=== PATIENT | female | born 1940 | race Caucasian/White ===

== ENCOUNTER 2018-11-24 05:53 | Inpatient (IN) ==
--- NOTE | 2018-11-11 11:44 | Anesthesiology Consultation ---
Date of Service November 11, 2018 Assessment & Plan (1) Encounter for pre-operative examination: Plan: Note sent to PCP re: new diabetes finding. PCP Clearance 11/17/18: "Glucose today in office 105. Patient will likely be diet controlled. Discussed diet, exercise and lifestyle. Will refer to diabetes education. Will refer for diabetic eye exam. Urine microalbumin. Follow-up in 4 weeks, A1c prior. Medically cleared for surgery." CHECK BSG AM DOS Chart Review Chart Review: Acceptable Risk for Surgery and Patient seen in Pre Admission Testing Teaching & Discussion Instructed NPO after midnight before surgery, except medications with 15 cc of water. Medication instructions provided according to the PAT guidelines. History Surgery Operation Date: 11/24/18 08:15 Proposed Procedures p Right Total Hip Arthroplasty - Kenyon Huston MD Height/Weight Height: 5 ft 1 in Weight: 84.9 kg Allergies Allergy/AdvReac Type Severity Reaction Status Date / Time ibuprofen AdvReac Unknown NOT TO Verified 11/10/18 15:38 TAKE DUE TO KIDNEY FUNCTION Medications Home Medications Medication Instructions Recorded Confirmed Last Taken acetaminophen [Tylenol Extra 500 mg PO Q6H PRN 11/10/18 11/10/18 Unknown Strength] amlodipine 5 mg PO QAM 11/10/18 11/10/18 Unknown atorvastatin 40 mg PO QAM 11/10/18 11/10/18 Unknown cholecalciferol (vitamin D3) 5,000 unit PO QAM 11/10/18 11/10/18 Unknown [Vitamin D3] hydrochlorothiazide 25 mg PO QAM 11/10/18 11/10/18 Unknown levothyroxine 100 mcg PO QAM 11/10/18 11/10/18 Unknown lisinopril 2.5 mg PO QAM 11/10/18 11/10/18 Unknown omega 5-xxy-map-fish oil [Fish Oil] 1 cap PO QAM 11/10/18 11/10/18 Unknown potassium chloride 20 meq PO QAM 11/10/18 11/10/18 Unknown Past Medical History Medical History Chronic back pain Chronic kidney disease STAGE 3 F/U DR [place] Q 1 YR Diabetes New dx, per PCP will attempt diet control. Hyperlipidemia Hypertension Hypothyroidism Obesity Osteoarthritis Past Family History Family History Brother Family history of diabetes mellitus Sister Family history of diabetes mellitus Past Surgical History Surgical History H/O hand surgery RIGHT BONE SPUR History of ERCP REMOVAL STONE History of section History of cholecystectomy History of total hip arthroplasty LEFT Past Anesthesia History No Hx of Anesthesia Complications and No Family Hx of Anesthesia Complications (unknown) 2013 MARTHA at [facility] done with GA, record does not indicate reason, but spinal block was not attempted. MAC 3, ETT 7.0. History of PONV No Motion Sickness Screening History of Motion Sickness: Yes Social History Smoking Status: Never smoker Do You Dip or Chew Tobacco: No Hx Alcohol Use: No Hx Substance Use: No substance use type: does not use Exercise / Class Metabolic Activity III < 4 Walking/Shop/Light housework (Denies CP or SOB with stairs but currently limited by hip pain) Review of Systems Pt denies any recent chest pain, shortness of breath, palpitations, cough, fever or URI. Physical Exam Vital Signs BP: 135/58 P: 62bpm SPO2: 98% RA T: 97.5 F R: 20 ENMT Mouth: + dentures (full upper, partial lower); no chipped teeth and no loose teeth Thyromental Distance: > or= 3.5 Finger Breadths (3.5) Mallampati Class: II Neck normal visual inspection; neck extension not limited Respiratory normal respiratory effort Auscultation: lungs clear to auscultation bilaterally Cardiovascular Rate/Rhythm: regular rate and regular rhythm Heart Sounds: no murmur Vessels: no carotid bruit Extremities: no edema Testing Electrocardiogram Date: 11/11/18 Findings: + NSR @ (62) 1st degree AV block. Left axis deviation. Chest X-Ray Date: 11/11/18 FINDINGS: Stable small linear scarlike densities within the lingula. Otherwise, lungs are clear. Cardiac silhouette is normal in size. No pleural effusions. No pneumothorax. Prior cholecystectomy. IMPRESSION: No significant change compared to the prior study. No acute process. Echocardiogram Date: 12/13/13 EF: 60-65% The study was technically adequate. The left ventricle is normal in size. There is borderline concentric LVH. The left ventricular systolic function is normal. There is no thrombus. The left ventricular wall motion is normal. Right ventricle is normal in size and function. No significant valve disease. Grade 1 diastolic dysfunction. Laboratory Results 11/11/18 12:20 11/11/18 11:20 Blood Type O Positive 11/11/18 12:20 Antibody Screen NEGATIVE 11/11/18 12:20 PT 10.3 Seconds (9.0-12.0) 11/11/18 12:20 INR 1.0 (0.9-1.1) 11/11/18 12:20 APTT 26.1 Seconds (21.0-31.0) 11/11/18 12:20 Hemoglobin A1c 7.0 % (4.5-5.6) H 11/11/18 12:20 Urine Color Yellow 11/11/18 12:20 Urine Appearance Clear (Clear) 11/11/18 12:20 Urine pH 5.0 (4.5-7.5) 11/11/18 12:20 Ur Specific Bevier 1.010 (1.000-1.030) 11/11/18 12:20 Urine Protein Negative (Negative) 11/11/18 12:20 Urine Glucose (UA) Negative (Negative) 11/11/18 12:20 Urine Ketones Negative (Negative) 11/11/18 12:20 Urine Nitrite Negative (Negative) 11/11/18 12:20 Ur Leukocyte Esterase Trace (Negative) H 11/11/18 12:20 Urine WBC (Auto) 1-5 /hpf (0-5) 11/11/18 12:20 Urine RBC (Auto) 0-4 /hpf (0-4) 11/11/18 12:20 U Hyaline Cast (Auto) 0 /lpf (0-5) 11/11/18 12:20 U Epithel Cells (Auto) 5-10 /lpf (0-5) H 11/11/18 12:20 Urine Bacteria (Auto) Negative (Negative) 11/11/18 12:20 11/11/18 12:20 Urine Culture - Final Urine,Clean Catch Lactobacillus species
--- NOTE | 2018-11-11 11:47 | PAT Medication Instructions ---
Medication Instructions Date of Service November 11, 2018 Home Medications acetaminophen [Tylenol Extra Strength] 500 mg PO Q6H PRN amlodipine 5 mg PO QAM atorvastatin 40 mg PO QAM cholecalciferol (vitamin D3) 5,000 unit PO QAM hydrochlorothiazide 25 mg PO QAM levothyroxine 100 mcg PO QAM lisinopril 2.5 mg PO QAM omega 6-drj-mkc-fish oil [Fish Oil] 1 cap PO QAM potassium chloride 20 meq PO QAM STOP taking 2 weeks before surgery omega 6-mut-cts-fish oil [Fish Oil] 1 cap PO QAM DO NOT take the morning of surgery cholecalciferol (vitamin D3) 5,000 unit PO QAM hydrochlorothiazide 25 mg PO QAM lisinopril 2.5 mg PO QAM potassium chloride 20 meq PO QAM Take morning of surgery With a small sip of water, OTHERWISE NOTHING TO EAT OR DRINK AFTER MIDNIGHT: acetaminophen [Tylenol Extra Strength] 500 mg PO Q6H PRN (if needed, may be taken up to four hours before surgery) amlodipine 5 mg PO QAM atorvastatin 40 mg PO QAM levothyroxine 100 mcg PO QAM Other Notes If you have any questions please call us at [phone] or [phone] or [phone] or [phone]
--- NOTE | 2018-11-11 13:00 | XRay Report ---
XR chest Pre-admission PA/Lat HISTORY: Preop. COMPARISON: Chest 11/15/2013. FINDINGS: Stable small linear scarlike densities within the lingula. Otherwise, lungs are clear. Card iac silhouette is normal in size. No pleural effusions. No pneumothorax. Prior cholecystectomy. IMPRESSION: No significant change compared to the prior study. No acute process. Electronically signed by: Jose Mckeon M.D. 11/11/2018 12:58 PM
[2018-11-11 13:20] LABS: Basophils # (auto) 0.02 K/uL (0-0.2); Basophils % (auto) 0.3 %; Eosinophils # (auto) 0.15 K/uL (0-0.5); Eosinophils % (auto) 1.9 %; Hematocrit (blood only) 36.8 % (37-47); Hemoglobin 12.1 g/dL (12.0-16.0); Immature Granulocytes # (auto) 0.01 K/uL (0.00-0.02); Immature Granulocytes % (auto) 0.1 %; Lymphocytes # (auto) 1.77 K/uL (1.2-3.4); Lymphocytes % (auto) 22.9 %; Mean Corpuscular Hgb Conc 32.9 g/dL (32-36); Mean Corpuscular Volume 92.7 fL (80-100); Mean Platelet Volume 10.5 fL (7.4-10.4); Monocytes # (auto) 0.69 K/uL (0.11-0.59); Monocytes % (auto) 8.9 %; Neutrophils % (auto) 65.9 %; Platelet Count 328 K/uL (130-400); RDW Coefficient of Variation 13.4 % (11.5-14.5); RDW Standard Deviation 45.7 fL (36.4-46.3); Red Blood Count 3.97 M/uL (4.2-5.4); White Blood Count 7.74 K/uL (4.8-10.8)
[2018-11-11 13:33] LABS: Appearance Urine Clear (Clear); Bacteria Urine Automated Negative (Negative); Bilirubin Urine Negative (Negative); Blood Urine Negative (Negative); Cast Urine Automated 0 /lpf (0-5); Color Urine Yellow; Glucose Urine UA Negative (Negative); Ketones Urine Negative (Negative); Leukocyte Esterase Urine Trace (Negative); Nitrite Urine Negative (Negative); Protein Urine Negative (Negative); RBC Urine Automated 0-4 /hpf (0-4); Urobilinogen Urine Negative (Negative)
[2018-11-11 13:33] LABS: Albumin Level 3.5 gm/dl (3.4-5.0); BUN Creatinine Ratio 20.7 (10-20); Calcium 8.7 mg/dl (8.5-10.1); Creatinine Clr Calc Pharmacy 45.9 ml/min; Est GFR (African American) 61.2; Est GFR (Non-African American) 52.8; Potassium 3.4 mmol/L (3.5-5.1)
[2018-11-11 13:36] LABS: Estimated Average Glucose 154 mg/dl
[2018-11-11 13:39] LABS: Partial Thromboplastin Time 26.1 Seconds (21.0-31.0); Prothrombin Time 10.3 Seconds (9.0-12.0)
--- NOTE | 2018-11-23 11:59 | History and Physical Report ---
DATE OF ADMISSION: 11/24/2018 CHIEF COMPLAINT: Right hip pain. HISTORY OF PRESENT ILLNESS: The patient is a 78-year-old female with known osteoarthritis about her right hip. She is unable to take NSAIDs due to a questionable history of kidney troubles. She has pain and disability with activities of daily living. She has pain with prolonged weightbearing and standing activities. She has difficulty with any kneeling, bending, or squatting activities. Due to ongoing pain and disability, she now desires to proceed with right total hip arthroplasty. PAST MEDICAL HISTORY: Hypertension, hypercholesterolemia, hypothyroidism, low back pain, obesity, history of kidney dysfunction. PAST SURGICAL HISTORY: , gallbladder surgery, right hand surgery. MEDICATIONS: Levothyroxine 100 mcg daily, hydrochlorothiazide 25 mg daily, amlodipine besylate 5 mg daily, potassium CLER 10 mEq 2 daily, atorvastatin 40 mg daily, lisinopril 2.5 mg daily, fish oil daily, vitamin D3 daily. ALLERGIES: No known drug allergies. SOCIAL HISTORY AND REVIEW OF SYSTEMS: Noncontributory. PHYSICAL EXAMINATION: GENERAL: Well-nourished, well-developed female who appears her stated age. HEENT: Normocephalic, atraumatic, extraocular movements intact, oropharynx pink and moist. NECK: Supple without adenopathy. LUNGS: Clear to auscultation bilaterally. HEART: Regular rate and rhythm. ABDOMEN: Soft, nontender, nondistended. EXTREMITIES: The upper extremities are within normal limits. The right hip demonstrates limited range of motion. There is limitation of active and passive internal/external rotation with pain at end range. X-RAYS: X-rays were reviewed. She has severe osteoarthritis about the right hip with complete loss of the joint space. There are osteophytes about the femoral head and acetabulum. ASSESSMENT: Right hip degenerative joint disease. PLAN: Risks versus benefits were discussed, consent was obtained. The patient's primary care physician is Dr. Waldemar Hairston. We will proceed with right total hip arthroplasty as indicated.
[2018-11-24] MEDS ORDERED: TRANEXAMIC ACID 1,000 MG **IV Pre-op IV SCH (06:00)
[2018-11-24] MEDS ORDERED: dexAMETHasone 4 MG TAB PO SCH (06:00)
[2018-11-24] MEDS ORDERED: GABAPENTIN 300 MG PO SCH (06:00)
[2018-11-24] MEDS ORDERED: LR 500ML BOLUS, THEN 15ML/HR IV SCH (06:00)
[2018-11-24] MEDS ORDERED: ROPIVACAINE 0.5% HCL/PF 150 MG, BUPIVACAINE 0.5% MPF 30 ML, EPINEPHrine 30MG/30ML (OR U... INFIL SCH (06:00)
[2018-11-24] MEDS ORDERED: FAMOTIDINE 20 MG TAB PO SCH (06:00)
[2018-11-24] MEDS ORDERED: ACETAMINOPHEN 500 MG TAB PO SCH (06:00)
[2018-11-24] MEDS ORDERED: CeleBREX 200 MG CAP PO SCH (06:00)
[2018-11-24] MEDS ORDERED: CEFAZOLIN 2000MG 2,000 MG/15 ML SYR IV SCH (06:00)
[2018-11-24] MEDS ORDERED: BUPIVACAINE 0.5 % 5 MG/1 ML PF 10ML VIAL ONE (06:22)
[2018-11-24] MEDS ORDERED: TRANEXAMIC ACID 1,000 MG **IV Intra-op IV SCH (06:30)
[2018-11-24] MEDS ORDERED: METOPROLOL TARTRATE 1 MG/ML VIAL IV ONE ×2 (07:20→07:21)
[2018-11-24] MEDS: METOPROLOL TARTRATE 1 MG/ML VIAL IV PRN ×4 (07:28→07:59)
[2018-11-24] MEDS ORDERED: MIDAZOLAM HCL 1 MG/ML 2ML VIAL ONE (07:44)
[2018-11-24] MEDS ORDERED: KETAMINE HCL INJ 50 MG/ML 10 ML VIAL ONE (07:45)
[2018-11-24] MEDS ORDERED: ACETAMINOPHEN 500 MG TAB PO PRN (08:06)
--- NOTE | 2018-11-24 08:20 | History & Physical Report ---
Date of Service November 24, 2018 Assessment & Plan (1) Atrial fibrillation with RVR: (2) New onset a-fib: - Admit to tele for new onset Afib with RVR - IV metoprolol 5 mg given x 4 in the ASU prior to my examination and BP has greatly improved to 134/87 down and HR still around 120s. Will continue BB IV with parameters and likely transition to oral once more stabilized. Pt is asymptomatic. - Cardiology consulted - will await further recommendations - Checking CMP now to evaluate K+, magnesium, phos. - Trend troponins - EKG reviewed - Anticoagulation - await cardiology recs - pt electing for total hip arthroplasty will require instructions if placed on anticoagulation. (3) Benign essential HTN: - Did not take HCTZ, amlodipine or lisinopril this morning. Will resume these meds tomorrow am pending course with afib today and beta blockade which has been administered IV. Will likely add on oral BB. (4) HLD (hyperlipidemia): - Cont atorvastatin 40 mg (5) DM II (diabetes mellitus, type II), controlled: - A1C = 7.0 on 11/11/18, new diagnosis - ISS with accuchecks, Diabetic/HH diet - Pt is not on pharmacological treatment as an outpatient. (6) Hypothyroidism: - Continue levothyroxine 100 mcg QAM (7) Chronic low back pain: - Stable, no current pain. Tylenol prn (8) CKD (chronic kidney disease): - Checking PRP, unknown baseline at this time. - Ordered lovenox subq for now, transition to heparin if poor Cr./clearance. (9) Obesity (BMI 30.0-34.9): - Diet and exercise to be encouraged, HH diet. (10) DVT prophylaxis: - Heparin subq History of Present Illness Chief Complaint: New onset afib Primary Care Provider: Waldemar Ophir This is a 78 yo F with PMHx of HTN, HLD, obesity with BMI of 34, Hypothyroidism, CKD, chronic low back pain who was present for elective R total hip arthroplasty by Dr. Huston, and was found to be in Afib with RVR once in preop. Pt denies any acute symptoms, denies chest pain, shortness of breath, palpitation, flutter, headache, lightheadedness, dizziness. She denies having known cardiac arrhythmia in the past. Pt notes she did not eat breakfast due to scheduled surgery, and did not take morning potassium, HCTZ or lisinopril as instructed. Her is present at bedside. EKG with Afib with RVR, pt s/p 4 doses of Lopressor IV 5 mg and pt is 134/87 and HR is between the 120s-130s at bedside. Allergies Allergy/AdvReac Type Severity Reaction Status Date / Time ibuprofen AdvReac Unknown NOT TO Verified 11/24/18 07:12 TAKE DUE TO KIDNEY FUNCTION Home Medications Home Medications Medication Instructions Recorded Confirmed Type acetaminophen [Tylenol Extra 500 mg PO Q6H PRN 11/10/18 11/24/18 History Strength] amlodipine 5 mg PO QAM 11/10/18 11/10/18 History atorvastatin 40 mg PO QAM 11/10/18 11/10/18 History cholecalciferol (vitamin D3) 5,000 unit PO QAM 11/10/18 11/24/18 History [Vitamin D3] hydrochlorothiazide 25 mg PO QAM 11/10/18 11/24/18 History levothyroxine 100 mcg PO QAM 11/10/18 11/10/18 History lisinopril 2.5 mg PO QAM 11/10/18 11/24/18 History omega 4-oho-bii-fish oil [Fish Oil] 1 cap PO QAM 11/10/18 11/24/18 History potassium chloride 20 meq PO QAM 11/10/18 11/24/18 History Past Med/Surg History Medical History Chronic back pain Chronic kidney disease STAGE 3 F/U DR [place] Q 1 YR Diabetes New dx, per PCP will attempt diet control. 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 Beliefs That Will Affect Care: None Current Living Situation: Spouse Other Information That Helps Us Care for You: No Feels Safe at Home: Yes Safety Concerns: Feels Safe At This Time Smoking Status: Never smoker Hx Alcohol Use: No Hx Substance Use: No Review of Systems Constitutional: No fever, sweats or chills Eyes: No diplopia, no worsening or blurred vision ENT: normal hearing, no trouble swallowing Respiratory: No cough, sputum, dyspnea at rest or on exertion Cardiovascular: No chest pain, tightness or palpitations Abdomen: No pain, nausea, vomiting, diarrhea or constipation Musculoskeletal: No joint pain, calf pain, swelling Neurologic: No weakness, numbness/tingling, or balance problems Psychiatric: No anxiety or depression Skin: No rash or itch Physical Exam Vital Signs (Past 24 Hours): Last Vital Signs Temp 36.5 C 11/24/18 07:55 Pulse 147 H 11/24/18 07:55 Resp 20 11/24/18 07:55 BP 164/105 H 11/24/18 07:55 Pulse Ox 99 11/24/18 07:55 Physical Exam: General: awake, alert, no apparent distress Head: Normocephalic, atraumatic ENT: PERRL, EOMI, no pharyngeal exudate, mucous membranes moist Chest: Clear to auscultation, on room air, no adventitious breath sounds Cardiac: Irregularly irregular, rapid with HR in 120s, no murmur, no JVD, normal peripheral pulses Abdominal: NABS x 4 quadrants, soft, nontender to palpation, no rebound, guarding or tenderness Extremities: Normal inspection, no peripheral edema or erythema, + ecchymosis over the left knee and lateral lower leg s/p injury, calfs nontender to palpation Psych: Normal mood and affect Neuro: AAO x 3, no motor deficits, speech is clear Results & Data ECG Additional Comments: 24-NOV-2018 07:26:06 [facility] Atrial fibrillation with rapid ventricular response Left axis deviation Moderate voltage criteria for LVH, may be normal variant ST & T wave abnormality, consider lateral ischemia Abnormal ECG When compared with ECG of 11-NOV-2018 12:15, Atrial fibrillation has replaced Sinus rhythm Vent. rate has increased BY 87 BPM Vent. rate 149 BPM MN interval * ms QRS duration 78 ms QT/QTc 258/406 ms P-R-T axes * -34 114 Code Status & VTE Plan Code Status Full Supervising Physician Co-Signing Physician Notes Patient seen, examined, and discussed with Rita Tay PA-C today. I agree with the H&P as described by Ms. Tay with the following summary/exceptions: 78yo F w/ hx of osteoarthritis who presented for planned right total hip with Dr. Huston. However, in the pre-op area, she was found to be hypertensive and in afib with RVR. She is entirely asymptomatic and did not know she was afib. Procedure was cancelled, and we were requested to admit for afib with RVR. 1) Afib with RVR - Spontaneously converted at 10:15am. Will gently control her rate while here. Will institute anticoagulation if she will not get her procedure in the next week. Chads-Vasc is 5. 2) HTN - BP currently 116/70. Was elevated after missing some of her home meds for the surgery. Will monitor as we're now adding a new medication to her regimen. 3) DM2 - A1c was 7.0%. No outpatient meds. Sliding scale
[2018-11-24] MEDS ORDERED: AMLODIPINE BESYLATE 5 MG TAB PO SCH (09:00)
[2018-11-24] MEDS ORDERED: POTASSIUM CHLORIDE 10 MEQ TABCR PO SCH (09:00)
[2018-11-24] MEDS ORDERED: ATORVASTATIN 40 MG TAB PO SCH (09:00)
[2018-11-24] MEDS ORDERED: LISINOPRIL 2.5 MG TAB PO SCH (09:00)
[2018-11-24] MEDS ORDERED: CHOLECALCIFEROL 1,000 UNITS TAB PO SCH (09:00)
[2018-11-24] MEDS ORDERED: hydroCHLOROthiazide 25 MG TAB PO SCH (09:00)
[2018-11-24] MEDS ORDERED: METOPROLOL TARTRATE 1 MG/ML VIAL IV PRN (09:27)
[2018-11-24] MEDS ORDERED: CARBOHYDRATES FOR HYPOGLYCEMIA PO PRN (09:27)
[2018-11-24] MEDS ORDERED: GLUCOSE 10 TABS/TUBE PO PRN (09:27)
[2018-11-24] MEDS ORDERED: GLUCOSE 40% GEL 15 GM TUBE PO PRN (09:27)
[2018-11-24] MEDS ORDERED: ACETAMINOPHEN 325 MG TAB PO PRN (09:27)
[2018-11-24] MEDS ORDERED: GLUCAGON FOR INJ 1 MG VIAL SQ PRN (09:27)
[2018-11-24] MEDS ORDERED: ONDANSETRON INJ 2 MG/ML 2 ML VIAL IV PRN (09:27)
[2018-11-24] MEDS ORDERED: DEXTROSE 50% 50 ML SYRINGE IV PRN (09:27)
--- NOTE | 2018-11-24 09:29 | Cardiology Consultation ---
Date of Consultation November 24, 2018 Assessment & Plan (1) Atrial fibrillation with RVR: Patient presented for scheduled right hip replacement and was subsequently admitted with new onset atrial fibrillation with RVR. She is asymptomatic and therefore impossible to determine how long she has been in atrial fibrillation. She is well perfused on exam without signs of heart failure. Recommend rate control strategy. Start metoprolol tartrate 50 TID. If heart rate remains uncontrolled recommend starting a diltiazem drip. Check TSH level given history of hypothyroidism. Obtain echocardiogram. She has an elevated CHADS-VASc score and anticoagulation is recommended for stroke risk reduction. The timing of initiation will depend on when her surgery is scheduled for. If surgery within the next week can hold off on initiating anticoagulation until after surgery. (2) Benign essential HTN: BP was elevated upon admission but has improved after getting metoprolol. May need to discontinue her home antihypertensives in order to allow for further titration of AV kamryn blocking agents. History of Present Illness Reason for Consultation: Atrial fibrillation with RVR Attending Physician: Kenyon Huston MD History of Present Illness Mrs. Li is a 78 year old female with a medical history significant for hypertension, hypothyrodism, dyslipidemia and osteoarthritis. She presented to [facility] this morning for scheduled right hip replacement but was noted to be in atrial fibrillation with RVR. Her heart rate was as high as 160s. She has been given a total of 20 mg IV metoprolol with only slight improvement in her heart rate. She denies any cardiac history, specifically denies history of atrial dysrhythmia. She is asymptomatic without palpitations. At home she remains fairly active and is able to perform her activities of daily living including cleaning and cooking without exertional chest pain or limiting dyspnea. She denies orthopnea, PND or peripheral edema. No lightheadedness, near syncope or syncope. No abnormal bleeding. ROS: 10 point review of systems otherwise negative unless stated in HPI. Social hx: . No tobacco, alcohol or drug use. Allergies Allergy/AdvReac Type Severity Reaction Status Date / Time ibuprofen AdvReac Unknown NOT TO Verified 11/24/18 07:12 TAKE DUE TO KIDNEY FUNCTION Home Medications Home Medications Medication Instructions Recorded Confirmed Type acetaminophen [Tylenol Extra 500 mg PO Q6H PRN 11/10/18 11/24/18 History Strength] amlodipine 5 mg PO QAM 11/10/18 11/10/18 History atorvastatin 40 mg PO QAM 11/10/18 11/10/18 History cholecalciferol (vitamin D3) 5,000 unit PO QAM 11/10/18 11/24/18 History [Vitamin D3] hydrochlorothiazide 25 mg PO QAM 11/10/18 11/24/18 History levothyroxine 100 mcg PO QAM 11/10/18 11/10/18 History lisinopril 2.5 mg PO QAM 11/10/18 11/24/18 History omega 3-kqo-psy-fish oil [Fish Oil] 1 cap PO QAM 11/10/18 11/24/18 History potassium chloride 20 meq PO QAM 11/10/18 11/24/18 History metoprolol succinate 25 mg PO DAILY #30 tab 11/24/18 Rx Patient History Medical History Chronic back pain Chronic kidney disease STAGE 3 F/U DR [place] Q 1 YR Diabetes New dx, per PCP will attempt diet control. Hyperlipidemia Hypertension Hypothyroidism Obesity Osteoarthritis Surgical History H/O hand surgery RIGHT BONE SPUR History of ERCP REMOVAL STONE History of section History of cholecystectomy History of total hip arthroplasty LEFT Family History Brother Family history of diabetes mellitus Sister Family history of diabetes mellitus Social History Preferred Language: [place] Beliefs That Will Affect Care: None Current Living Situation: Spouse Other Information That Helps Us Care for You: No Feels Safe at Home: Yes Safety Concerns: Feels Safe At This Time Smoking Status: Never smoker Hx Alcohol Use: No Hx Substance Use: No Physical Exam Vital Signs (Past 24 Hours): Last Vital Signs Temp 36.5 C 11/24/18 07:55 Pulse 128 H 11/24/18 08:51 Resp 20 11/24/18 08:51 BP 124/87 11/24/18 08:51 Pulse Ox 95 11/24/18 08:51 Physical Exam: General: No acute distress, comfortable. HEENT: Head is normal. PERRLA. EOMI. Sclerae anicteric. Ears, nose and throat unremarkable. Mucous membranes moist. Neck: Normal carotid upstrokes, no bruits. No appreciable JVD. Lungs: Clear to auscultation bilaterally without rales, rhonchi or wheezes. Cardiac: Irregularly irregular. Tachycardic. S1-S2 normal. No appreciable murmur, gallop or rub. Abdomen: Soft and nontender. Bowel sounds normal. No mass or organomegaly. No abdominal bruit. Extremities/vascular: Well perfused. No peripheral edema. Radial, DP and PT pulses 2+ bilaterally Varicosities of lower extremities. Skin: No rash or abnormal lesions. Normal turgor. Neurologic: Nonfocal Psychiatric: Affect appropriate. Alert and oriented. Results & Data Laboratory Results Laboratory Results - last 24 hr 11/24/18 07:21 POC Glucose 148 H ECG Additional Comments: EKG 11/24/18: Atrial fibrillation with RVR at [address]/T wave changes
[2018-11-24 09:43] LABS: Basophils # (auto) 0.02 K/uL (0-0.2); Basophils % (auto) 0.2 %; Eosinophils # (auto) 0.05 K/uL (0-0.5); Eosinophils % (auto) 0.6 %; Hematocrit (blood only) 36.7 % (37-47); Hemoglobin 12.2 g/dL (12.0-16.0); Immature Granulocytes # (auto) 0.02 K/uL (0.00-0.02); Immature Granulocytes % (auto) 0.2 %; Lymphocytes # (auto) 1.26 K/uL (1.2-3.4); Lymphocytes % (auto) 14.1 %; Mean Corpuscular Volume 91.5 fL (80-100); Mean Platelet Volume 10.5 fL (7.4-10.4); Monocytes # (auto) 0.63 K/uL (0.11-0.59); Neutrophils # (auto) 6.96 K/uL (1.4-6.5); Neutrophils % (auto) 77.9 %; Platelet Count 319 K/uL (130-400); RDW Coefficient of Variation 13.5 % (11.5-14.5); RDW Standard Deviation 44.7 fL (36.4-46.3); Red Blood Count 4.01 M/uL (4.2-5.4); White Blood Count 8.94 K/uL (4.8-10.8)
[2018-11-24] MEDS ORDERED: ENOXAPARIN INJ 40 MG/0.4 ML SYR SQ SCH (09:45)
[2018-11-24] MEDS ORDERED: METOPROLOL TARTRATE 50 MG TAB PO SCH (09:45)
[2018-11-24 09:59] LABS: Albumin Level 3.6 gm/dl (3.4-5.0); BUN Creatinine Ratio 21.9 (10-20); Blood Urea Nitrogen 24 mg/dl (7-18); Calcium 8.9 mg/dl (8.5-10.1); Carbon Dioxide 30 mmol/L (21-32); Chloride 103 mmol/L (98-107); Est GFR (African American) 57.1; Est GFR (Non-African American) 49.3; Glucose 135 mg/dl (70-99); Sodium 139 mmol/L (136-145)
[2018-11-24] MEDS ORDERED: LEVOTHYROXINE SODIUM 100 MCG TABLET PO SCH (10:00)
[2018-11-24 10:04] LABS: Alanine Aminotransferase 33 U/L (12-78); Albumin Globulin Ratio 0.8 (0.9-2); Alkaline Phosphatase 141 U/L (45-117); Aspartate Aminotransferase 31 U/L (15-37); Bilirubin,Total 0.6 mg/dl (0.2-1); Globulin 4.3 gm/dl (2.5-4.0); Mean Corpuscular Hgb Conc 33.2 g/dL (32-36); Phosphorus 3.5 mg/dl (2.5-4.9); Total Protein 7.9 gm/dl (6.4-8.2); Troponin I < 0.015 ng/ml (0-0.045)
[2018-11-24 10:31] LABS: Appearance Urine Clear (Clear); Bacteria Urine Automated Negative (Negative); Bilirubin Urine Negative (Negative); Blood Urine Negative (Negative); Color Urine Yellow; Epithelial Cell Urine Auto 20-30 /lpf (0-5); Glucose Urine UA Negative (Negative); Ketones Urine Negative (Negative); Leukocyte Esterase Urine 1+ (Negative); Nitrite Urine Negative (Negative); Protein Urine Negative (Negative); RBC Urine Automated 0-4 /hpf (0-4); Urobilinogen Urine Negative (Negative)
[2018-11-24] MEDS: INSULIN ASPART 100 UNITS/ML 3 ML PEN SC SCH ×2 (12:31→16:45)
[2018-11-24] MEDS ORDERED: METOPROLOL SUCC 25MG EXT REL TAB PO SCH (12:45)
[2018-11-25] MEDS ORDERED: OMEGA-3 (PURIFIED FISH OIL) 1 GM CAP PO SCH (09:00)
--- NOTE | 2018-11-25 09:35 | Hospitalist Consultation ---
Date of Consultation November 25, 2018 History of Present Illness Attending Physician: Hilton Joaquin MD Allergies Allergy/AdvReac Type Severity Reaction Status Date / Time ibuprofen AdvReac Unknown NOT TO Verified 11/24/18 07:12 TAKE DUE TO KIDNEY FUNCTION Home Medications Home Medications Medication Instructions Recorded Confirmed Type acetaminophen [Tylenol Extra 500 mg PO Q6H PRN 11/10/18 11/24/18 History Strength] amlodipine 5 mg PO QAM 11/10/18 11/10/18 History atorvastatin 40 mg PO QAM 11/10/18 11/10/18 History cholecalciferol (vitamin D3) 5,000 unit PO QAM 11/10/18 11/24/18 History [Vitamin D3] hydrochlorothiazide 25 mg PO QAM 11/10/18 11/24/18 History levothyroxine 100 mcg PO QAM 11/10/18 11/10/18 History lisinopril 2.5 mg PO QAM 11/10/18 11/24/18 History omega 8-qxr-bkw-fish oil [Fish Oil] 1 cap PO QAM 11/10/18 11/24/18 History potassium chloride 20 meq PO QAM 11/10/18 11/24/18 History metoprolol succinate 25 mg PO DAILY #30 tab 11/24/18 Rx Patient History Medical History Chronic back pain Chronic kidney disease STAGE 3 F/U DR [place] Q 1 YR Diabetes New dx, per PCP will attempt diet control. Hyperlipidemia Hypertension Hypothyroidism Obesity Osteoarthritis Surgical History H/O hand surgery RIGHT BONE SPUR History of ERCP REMOVAL STONE History of section History of cholecystectomy History of total hip arthroplasty LEFT Family History Brother Family history of diabetes mellitus Sister Family history of diabetes mellitus Social History Preferred Language: Polish Beliefs That Will Affect Care: None Current Living Situation: Spouse Other Information That Helps Us Care for You: No Feels Safe at Home: Yes Safety Concerns: Feels Safe At This Time Smoking Status: Never smoker Hx Alcohol Use: No Hx Substance Use: No Physical Exam Vital Signs (Past 24 Hours): Last Vital Signs Temp 36.6 C 11/24/18 17:23 Pulse 147 H 11/24/18 17:23 Resp 20 11/24/18 17:23 BP 126/76 11/24/18 17:23 Pulse Ox 100 11/24/18 17:23
--- NOTE | 2018-11-25 14:20 | Discharge Summary ---
Date of Service November 24, 2018 Admission HPI Per Admitting Provider This is a 78 yo F with PMHx of HTN, HLD, obesity with BMI of 34, Hypothyroidism, CKD, chronic low back pain who was present for elective R total hip arthroplasty by Dr. Huston, and was found to be in Afib with RVR once in preop. Pt denies any acute symptoms, denies chest pain, shortness of breath, palpitation, flutter, headache, lightheadedness, dizziness. She denies having known cardiac arrhythmia in the past. Pt notes she did not eat breakfast due to scheduled surgery, and did not take morning potassium, HCTZ or lisinopril as instructed. Her is present at bedside. EKG with Afib with RVR, pt s/p 4 doses of Lopressor IV 5 mg and pt is 134/87 and HR is between the 120s-130s at bedside. Principal Diagnosis New onset afib with RVR Discharge Exam ENMT Mouth: + dentures (full upper, partial lower); no chipped teeth and no loose teeth Mallampati Class: II Neck normal visual inspection; neck extension not limited Respiratory normal respiratory effort Auscultation: lungs clear to auscultation bilaterally Cardiovascular Rate/Rhythm: regular rate and regular rhythm Heart Sounds: no murmur Vessels: no carotid bruit Extremities: no edema Discharge Data Allergies Allergy/AdvReac Type Severity Reaction Status Date / Time ibuprofen AdvReac Unknown NOT TO Verified 11/24/18 07:12 TAKE DUE TO KIDNEY FUNCTION Consultations 11/24/18 08:10 Consult Hospitalist Stat 11/24/18 08:57 Consult Cardiology Stat 11/24/18 09:27 Consult Cardiology Routine Consult Case Management - Discharge Planning Routine Procedures Performed Operation Date: 11/24/18 08:15 <No data on this case meets the specified criteria> Hospital Course (1) Atrial fibrillation with RVR: (2) New onset a-fib: Admitted for afib with RVR. She was given IV metoprolol, and converted back to normal sinus rhythm at 10:15am on the day of admission. She was seen by cardiology with recs below. Echo was done which showed normal EF. - Discharged on Toprol XL 25mg PO daily for beta blockade - Will need anticoagulation after procedure. Chads-Vasc of 5, making her stroke risk ~7%/year. Clearly outlined in discharge paperwork. Because Dr. Huston felt surgery could be done next week, did not start inpatient. (3) Benign essential HTN: - Did not take HCTZ, amlodipine or lisinopril this morning. Will resume these meds tomorrow am pending course with afib today and beta blockade which has been administered IV. Will likely add on oral BB. (4) HLD (hyperlipidemia): - Cont atorvastatin 40 mg (5) DM II (diabetes mellitus, type II), controlled: - A1C = 7.0 on 11/11/18, new diagnosis - ISS with accuchecks, Diabetic/HH diet - Pt is not on pharmacological treatment as an outpatient. (6) Hypothyroidism: - Continue levothyroxine 100 mcg QAM (7) Chronic low back pain: - Stable, no current pain. Tylenol prn (8) CKD (chronic kidney disease): - Checking PRP, unknown baseline at this time. - Ordered lovenox subq for now, transition to heparin if poor Cr./clearance. (9) Obesity (BMI 30.0-34.9): - Diet and exercise to be encouraged, HH diet. (10) DVT prophylaxis: - Heparin subq Total Time Total Time Spent Total Time Spent (In Minutes): 35 Total Time Includes: Examination of the Patient, Discharge Planning, Medication Reconciliation and Communication With Other Providers Discharge Plan Discharge Items Patient Disposition: Home - Self-Care Reason For Visit: NEW ONSET AFIB Discharge Diagnosis: New onset atrial fibrillation Discharge Goals: Diagnostic testing Activity: Resume your previous activity Non-emergency contact: Primary Care Provider and Cage Supervisor Call non-emergency contact if: you have any medication questions, your symptoms worsen, your pain is not controlled and your temperature is above 100.5 Follow-up/Referrals: Aurelio Salguero MD [Cage Supervisor] - (Please schedule a follow up with Dr. Salguero or another silviculture forester in 2-3 weeks for consideration of anticoagulation.) Waldemar Hairston [Primary Care Provider] - Diet: Heart Healthy Addtl Provider Instructions: Mrs. Li, You were admitted to the hospital when your heart went into a rhythm called atrial fibrillation in the pre-op area. This rhythm causes your heart to beat in an irregular way and to beat faster than normal. We gave you some medications to slow your heart, and it went back into a normal rhythm on its own. We have prescribed a low-dose medication called "metoprolol" that we hope will help your heart stay in its normal speed and rhythm. We also did an ultrasound of your heart that showed it has a good squeeze and no issues with your heart valves. You should call Dr. Huston's office tomorrow to reschedule your surgery. This rhythm is not a reason to avoid the surgery, and you were cleared by the cardiologists to have the surgery as soon as they can schedule you. After your surgery, you should discuss starting a blood thinner with your PCP or a silviculture forester. The heart rhythm (atrial fibrillation) you were in can cause a stroke, and you should take an anticoagulation medication to prevent this. Please see them after surgery to discuss this. The stroke risk is fairly low on any given day, so we do not think you need the anticoagulation before surgery, but the risk is ~7% per year, so it's important to start this eventually. Please come back to the hospital if you have any palpitations, chest pain, lightheadedness, dizziness, or other concerning symptoms. Prescriptions: New metoprolol succinate 25 mg tablet extended release 24 hr 25 mg PO DAILY Qty: 30 RF: 0 Continued atorvastatin 40 mg Tablet 40 mg PO QAM RF: 0 potassium chloride 10 mEq Capsule, Extended Release 20 meq PO QAM RF: 0 amlodipine 5 mg Tablet 5 mg PO QAM RF: 0 hydrochlorothiazide 25 mg Tablet 25 mg PO QAM RF: 0 lisinopril 2.5 mg Tablet 2.5 mg PO QAM RF: 0 cholecalciferol (vitamin D3) [Vitamin D3] 5,000 unit Tablet 5,000 unit PO QAM RF: 0 omega 6-vna-egw-fish oil [Fish Oil] 1,000 mg (120 mg-180 mg) Capsule 1 cap PO QAM RF: 0 levothyroxine 100 mcg Capsule 100 mcg PO QAM RF: 0 acetaminophen [Tylenol Extra Strength] 500 mg Tablet 500 mg PO Q6H PRN (Reason: Pain) RF: 0 Stand-Alone Forms: [facility] Discharge Orders: Discharge Order (Routine); Ordered 11/24/18 Ordered By: Hilton Joaquin Admission Data Admit Date/Time: 11/24/18 08:14 Attending Provider: Hilton Joaquin Admit Provider: Hilton Joaquin Primary Care Provider: Waldemar Hairston Other Providers: Aurelio Salguero ; Afsihn Gonzalez Service: Telemetry Other Interventions: Discharge Summary Assessment (RN) Last Done: 11/24/18 17:23 DC Date/Time DO NOT enter until pt leaves facility: 11/24/18 17:56
== END 2018-11-24 17:56 | disposition home or self-care (01) | DRG 310 ==
LOC: ASU 05:53 → 2S 08:14

== ENCOUNTER 2018-12-22 05:54 | Inpatient (IN) ==
--- NOTE | 2018-12-01 12:18 | Anesthesiology Consultation ---
Date of Service December 01, 2018 Assessment & Plan (1) Encounter for pre-operative examination: Patient initially scheduled for MARTHA 11/24 but was found to be in Afib in pre-op. Cardiology consult 11/24/18: "Patient presented for scheduled right hip replacement and was subsequently admitted with new onset atrial fibrillation with RVR. She is asymptomatic and therefore impossible to determine how long she has been in atrial fibrillation. She is well perfused on exam without signs of heart failure. Recommend rate control strategy. Start metoprolol tartrate 50 TID. If heart rate remains uncontrolled recommend starting a diltiazem drip. Check TSH level given history of hypothyroidism. Obtain echocardiogram. She has an elevated CHADS-VASc score and anticoagulation is recommended for stroke risk reduction. The timing of initiation will depend on when her surgery is scheduled for. If surgery within the next week can hold off on initiating anticoagulation until after surgery." *Despite above stipulation that anticoagulation was to be held only if surgery was scheduled for the following week, surgery was not scheduled until 12/22. Patient seen by cardio for f/u on 12/08. "The patient is stable from a cardiovascular standpoint. There has been no recurrence of her atrial fibrillation according to her report. She is tolerating rate control without difficulty. Long-term anticoagulation will be started following her surgery. She is an acceptable cardiac risk for hip replacement surgery without further cardiac testing." Chart Review Chart Review: Acceptable Risk for Surgery and Patient NOT seen in Pre Admission Testing (since admission for afib--initially seen at [facility] 11/11/18) History Surgery Operation Date: 12/22/18 09:45 Proposed Procedures p Right Total Hip Arthroplasty - Kenyon Huston MD Height/Weight Height: 5 ft 1 in Weight: 83.9 kg Allergies Allergy/AdvReac Type Severity Reaction Status Date / Time ibuprofen AdvReac Unknown NOT TO Verified 11/29/18 09:35 TAKE DUE TO KIDNEY FUNCTION Medications Home Medications Medication Instructions Recorded Confirmed Last Taken acetaminophen [Tylenol Extra 500 mg PO Q6H PRN 11/10/18 11/29/18 11/23/18 16:00 Strength] amlodipine 5 mg PO QAM 11/10/18 11/29/18 11/24/18 03:00 atorvastatin 40 mg PO QAM 11/10/18 11/29/18 11/24/18 03:00 cholecalciferol (vitamin D3) 5,000 unit PO QAM 11/10/18 11/29/18 11/23/18 08:00 [Vitamin D3] hydrochlorothiazide 25 mg PO QAM 11/10/18 11/29/18 11/23/18 08:00 levothyroxine 100 mcg PO QAM 11/10/18 11/29/18 11/24/18 03:00 lisinopril 2.5 mg PO QAM 11/10/18 11/29/18 11/23/18 08:00 omega 2-jyp-ach-fish oil [Fish Oil] 1 cap PO QAM 11/10/18 11/29/18 11/10/18 08:00 potassium chloride 20 meq PO QAM 11/10/18 11/29/18 11/23/18 12:00 metoprolol succinate 25 mg PO QAM 11/29/18 11/29/18 Unknown Past Medical History Medical History Atrial fibrillation DISCOVERED DURING PREOP PREP NOVEMBER 2018. PT WAS SEEN BY DR. GARCIA, TREATED AT [facility] AND DISCHARGED. PT FOLLOWED WITH DR. GARCIA AND WAS PLACED ON PO METOPROLOL. TO BE STARTED ON ANTICOAGULATION AFTER SURGERY. Chronic back pain Chronic kidney disease STAGE 3 F/U DR [place] Q 1 YR Diabetes New dx, per PCP will attempt diet control. Hyperlipidemia Hypertension Hypothyroidism Obesity Osteoarthritis Past Family History Family History Brother Family history of diabetes mellitus Sister Family history of diabetes mellitus Past Surgical History Surgical History H/O hand surgery RIGHT BONE SPUR History of ERCP REMOVAL STONE History of section History of cholecystectomy History of total hip arthroplasty LEFT Past Anesthesia History No Hx of Anesthesia Complications and No Family Hx of Anesthesia Complications 2013 MARTHA at [facility] done with GA, record does not indicate reason, but spinal block was not attempted. MAC 3, ETT 7.0. History of PONV No Motion Sickness Screening History of Motion Sickness: Yes Social History Smoking Status: Never smoker Do You Dip or Chew Tobacco: No Hx Alcohol Use: No Alcohol Intake Frequency Comment: 0 Hx Substance Use: No substance use type: does not use Testing Electrocardiogram Date: 11/24/18 Atrial fibrillation with rapid ventricular response at 149 bpm. Left axis deviation. Moderate voltage criteria for LVH may be normal variant. ST and T wave abnormality, consider lateral ischemia. When compared with EKG of 11/11/2018, atrial fibrillation has replaced sinus rhythm, ventricular rate has increased by 87 bpm. *pt subsequently admitted and treated for Afib RVR. At discharge, patient noted to be RRR on exam. Chest X-Ray Date: 11/11/18 FINDINGS: Stable small linear scarlike densities within the lingula. Otherwise, lungs are clear. Cardiac silhouette is normal in size. No pleural effusions. No pneumothorax. Prior cholecystectomy. IMPRESSION: No significant change compared to the prior study. No acute process. Echocardiogram Date: 11/24/18 EF: 55-60% Left ventricular systolic function is normal. No regional wall motion abnormalities noted. There is borderline concentric LVH. There is mild mitral regurgitation. Laboratory Results Laboratory Tests 11/24/18 11/24/18 11/24/18 09:28 09:28 09:28 WBC 8.94 Hgb 12.2 Hct 36.7 L Plt Count 319 Sodium 139 Potassium 4.0 Chloride 103 Carbon Dioxide 30 BUN 24 H Creatinine 1.09 Glucose 135 H TSH 1.690
--- NOTE | 2018-12-21 12:59 | History and Physical Report ---
DATE OF ADMISSION: 12/22/2018 CHIEF COMPLAINT: Right hip pain. HISTORY OF PRESENT ILLNESS: The patient is a 78-year-old female who was initially scheduled for a right total hip arthroplasty approximately 1 month ago. She was found to be in atrial fibrillation with rapid ventricular response. She was seen by cardiology and started on oral metoprolol and successfully converted to sinus rhythm. She is now cleared for her surgery and will be started on an anticoagulation medicine postoperatively. PAST MEDICAL HISTORY: Atrial fibrillation with RVR, benign essential hypertension, hyperlipidemia, hypothyroidism, obesity, stage III chronic kidney disease. PAST SURGICAL HISTORY: section, cholecystectomy, hand surgery, left hip replacement. MEDICATIONS: Metoprolol succinate ER 25 mg daily, amlodipine besylate 5 mg daily, hydrochlorothiazide 25 mg daily, lisinopril 2.5 mg daily, Tylenol 500 mg q.6 hours p.r.n., vitamin D3 5000 units daily, atorvastatin calcium 40 mg daily, levothyroxine sodium 100 mcg daily, potassium chloride 20 mEq daily. ALLERGIES: No known drug allergies. SOCIAL HISTORY AND REVIEW OF SYSTEMS: Noncontributory. PHYSICAL EXAMINATION: GENERAL: Well-nourished, well-developed elderly female who appears her stated age. HEENT: Normocephalic, atraumatic, extraocular movements intact, oropharynx pink and moist. NECK: Supple without adenopathy. LUNGS: Clear to auscultation bilaterally. HEART: Regular rate and rhythm. ABDOMEN: Soft, nontender, nondistended. EXTREMITIES: The upper extremities are within normal limits. The right hip demonstrates limited range of motion. There is limitation of active and passive internal/external rotation with pain at end range. X-RAYS: X-rays were reviewed. She has severe osteoarthritis about the right hip with complete loss of the joint space. There is evidence of femoral head and acetabular osteophytes. ASSESSMENT: Right hip degenerative joint disease. PLAN: Risks versus benefits were discussed, consent was obtained. The patient's primary care physician is Dr. Waldemar Hairston. Will proceed with right total hip arthroplasty as indicated.
[2018-12-22] MEDS ORDERED: ROPIVACAINE 0.5% HCL/PF 150 MG, BUPIVACAINE 0.5% MPF 30 ML, EPINEPHrine 30MG/30ML (OR U... INFIL SCH (06:00)
[2018-12-22] MEDS ORDERED: LR 500ML BOLUS, THEN 15ML/HR IV SCH (06:00)
[2018-12-22] MEDS ORDERED: BUPIVACAINE 0.5 % 5 MG/1 ML PF 10ML VIAL ONE (06:27)
[2018-12-22] MEDS ORDERED: BACITRACIN INJ 50,000 UNIT VIAL ONE (07:48)
[2018-12-22] MEDS ORDERED: ORTHO JOINT ANESTHETIC ONE (07:48)
[2018-12-22] MEDS ORDERED: POVIDONE-IODINE OP SOLN 30 ML BTL ONE (07:48)
[2018-12-22] MEDS ORDERED: LIDOCAINE HCL 2% 2 ML VIAL/AMP(20MG/ML) INFIL ONE (07:49)
[2018-12-22] MEDS ORDERED: MIDAZOLAM HCL 1 MG/ML 2ML VIAL ONE (07:49)
[2018-12-22] MEDS ORDERED: fentaNYL citrate 100 MCG/2 ML VIAL ONE (07:49)
[2018-12-22] MEDS ORDERED: PROPOFOL IV EMULSION 10 MG/ML 20 ML VIAL IV ONE (07:49)
[2018-12-22] MEDS ORDERED: ATROPINE SULFATE 0.1 MG/ML 10ML SYR IV PRN (07:50)
[2018-12-22] MEDS ORDERED: ONDANSETRON INJ 2 MG/ML 2 ML VIAL IV PRN (07:50)
[2018-12-22] MEDS ORDERED: ePHEDrine sulfate 50 MG/ML AMP IV PRN (07:50)
[2018-12-22] MEDS ORDERED: PHENYLEPHRINE 100MCG/ML 5ML SYR IV PRN (07:50)
[2018-12-22] MEDS ORDERED: HYDROmorphone INJ 1 MG/ML SYRINGE IV PRN (07:50)
[2018-12-22] MEDS ORDERED: CEFAZOLIN 2,000 MG/15 ML IV PUSH IV ONE (07:51)
--- NOTE | 2018-12-22 07:53 | History & Physical Bridge Note ---
Date of Service December 22, 2018 History & Physical Bridge Note I have examined the patient, reviewed the History & Physical and in the interval since the performance of the History & Physical I have noted the following changes of clinical significance: no changes noted
--- NOTE | 2018-12-22 09:15 | XRay Report ---
XR hip RT 1V CLINICAL HISTORY: RIGHT XTABLE AP HIP IN OR COMPARISON STUDY: None. FINDINGS: Intraoperative study the right hip demonstrates postoperative changes consistent with a rig ht total hip arthroplasty. Initial images demonstrate a femoral spacer. There is an overlying clamp a nd a small linear radiopaque focus at the sacrum. This favors a small sponge. IMPRESSION: Postoperative changes consistent with right total hip arthroplasty. Small linear radiopa que focus overlying the sacrum. This favors a small sponge. Electronically signed by: Jose Mckeon M.D. 12/22/2018 9:14 AM
--- NOTE | 2018-12-22 09:16 | Operative Report ---
Post Operative Report Pre & Post Diagnosis Operation Date: 12/22/18 08:15 Pre-Op Diagnosis: RIGHT HIP OSTEOARTHRITIS Post-Op Diagnosis: RIGHT HIP OSTEOARTHRITIS Procedure Operation Date: 12/22/18 08:15 Actual Procedures p Right Total Hip Arthroplasty(Right) - Kenyon Huston MD Surgeon Kenyon Huston MD Senior Health Consultant Jim Estimated Blood Loss 100 Findings Consistent with Post-Op Diagnosis Specimens Femoral head Anesthesia Type Spinal MAC Complications none Disposition Accompanied Patient To Recovery: No Disposition: Recovery Room Indications Hip pain Description of Procedure Patient's right hip was prepped and draped in usual sterile manner a right Jennifer Langenbeck incision was made subcutaneous tissue sharply dissected electrocautery was used for hemostasis. Significant adipose tissue was encountered the fat was electrocauterized. Fascia was incised throughout the length of the incision and incision was placed beneath the bursa was divided. The sutures were then placed placed in a short external rotators which were tagged with Vicryl suture. A T capsulotomy incision was made and the hip was dislocated. The femoral head was osteotomized at the appropriate level using the oscillating saw and attention was turned to the acetabulum where retractors were placed again up to size 52 gave good exposure of subchondral bone. 52 mm shell was impacted in the position and held with 2 cancellous bone screws. Check x-ray taken was taken and was found to be completely seated. Prior to his x-ray however the box osteotome was used to gain access to the femoral canal. A T-handled reamer was used to open the canal and lateralizing reamer was utilized. Sequential graspers were taken up to size 2 which gave good trial reduction was carried out with a -25 femoral neck by 32 mm head and skin good reproduction of leg length and soft tissue tension. Excellent stability was noted. Trial was reduced dislocated the rasp was removed and the final implant was impacted periarticular joint injection was carried out a Betadine soap was utilized pulsatile irrigation was utilized fascia was closed over Hemovac drain with #1 Vicryl subcutaneous tissue was closed with 0 Dexon skin was closed with the plan of Provera suction dressing was applied and the patient was taken to recovery in stable condition. Mr. Tello was utilized all portions of the procedure including prepping draping surgical assistance wound closure and dressing application. I attest to the content of the Intraoperative Record and any orders documented therein. Any exceptions are noted below.
--- NOTE | 2018-12-22 10:15 | XRay Report ---
AP PELVIS, CROSSTABLE LATERAL RIGHT HIP History: Right total hip arthroplasty. Degenerative arthritis. Postop. FINDINGS: The patient is status post a right total hip arthroplasty. The hardware is intact. No fract ure or dislocation. Skin oleksandr and surgical drains are in place. Evidence for prior left total hip arthroplasty. IMPRESSION: Right total hip arthroplasty. No evidence for hardware complication Electronically signed by: Jose Mckeon M.D. 12/22/2018 10:14 AM
[2018-12-22] MEDS ORDERED: OXYCODONE HCL IR 5 MG TAB (IMMEDIATE RELEASE) PO PRN (10:48)
[2018-12-22] MEDS ORDERED: HYDROmorphone INJ 0.5 MG/0.5 ML SYR IV PRN (10:48)
--- NOTE | 2018-12-22 10:48 | Anesthesiology Progress Note ---
Date of Service December 22, 2018 Anesthesia Post Procedure Vital Signs Vital Signs: Temp Pulse Pulse Pulse Resp BP BP 12/22/18 10:22 36.6 C 12/22/18 10:20 51 L 17 12/22/18 10:15 50 L 13 113/51 L 12/22/18 10:12 50 L 16 12/22/18 10:11 49 L 18 112/53 L 12/22/18 10:10 51 L 20 12/22/18 10:05 52 L 20 114/52 L 12/22/18 10:00 51 L 16 113/55 L 12/22/18 09:55 51 L 19 110/52 L 12/22/18 09:50 53 L 16 110/49 L 12/22/18 09:45 57 L 20 111/49 L 12/22/18 09:42 36.7 C 56 L 57 L 18 110/47 L 110/47 L 12/22/18 07:03 36.4 C L 78 16 BP Pulse Ox 12/22/18 10:22 100 12/22/18 10:20 100 12/22/18 10:15 100 12/22/18 10:12 100 12/22/18 10:11 100 12/22/18 10:10 100 12/22/18 10:05 100 12/22/18 10:00 99 12/22/18 09:55 99 12/22/18 09:50 100 12/22/18 09:45 100 12/22/18 09:42 99 12/22/18 07:03 172/67 H 99 Pain Intensity Right Hip: Pain Intensity: 0 Notes Mental Status: alert / awake / arousable Patient Amnestic to Procedure: Yes Nausea / Vomiting: adequately controlled Pain: adequately controlled Airway Patency, RR, SpO2: stable & adequate BP & HR: stable & adequate Hydration State: stable & adequate Neuraxial Anesthesia: was administered and sensory block is resolving Anesthetic Complications: no major complications apparent
[2018-12-22] MEDS ORDERED: CARBOHYDRATES FOR HYPOGLYCEMIA PO PRN (11:27)
[2018-12-22] MEDS ORDERED: GLUCAGON FOR INJ 1 MG VIAL SQ PRN (11:27)
[2018-12-22] MEDS ORDERED: GLUCOSE 10 TABS/TUBE PO PRN (11:27)
[2018-12-22] MEDS ORDERED: GLUCOSE 40% GEL 15 GM TUBE PO PRN (11:27)
[2018-12-22] MEDS ORDERED: DEXTROSE 50% 50 ML SYRINGE IV PRN (11:27)
--- NOTE | 2018-12-22 11:27 | Consultation ---
Date of Consultation December 22, 2018 Assessment & Plan (1) History of total right hip arthroplasty: S/p right MARTHA with Dr. Huston on 12/22. No surgical complications noted, and the patient is in no distress at this time. - Post-operative management per primary team (2) Atrial fibrillation: New-onset in 11/2018. Was found to be in afib in the pre-op area before her planned right MARTHA. Paroxsymal in nature as she returned to sinus prior to discharge from that hospitalization. Presently appears to be in sinus bradycardia with rate in the 50s. - Continue beta-jessica to help reduce risk of RVR if she were to go into afib after procedure - Can hold lisinopril and/or amlodipine if BP drops <100/50. Presently BP is 130/60, so no need to adjust meds at this time. - Begin anticoagulation when cleared by surgical team (ordered for tomorrow 12/23). (3) Diabetes: A1C was 7.0% on 11/11/18. - Sliding scale insulin - Diabetic diet (4) Hypertension: BP post-op is 130/60. - Continue home amlodipine, lisinopril, HCTZ, and metoprolol - Would drop HCTZ and/or lisinopril if BP drops <100/50; keep beta-jessica for rate-control if she goes into afib (5) CKD (chronic kidney disease) stage 3, GFR 30-59 ml/min: Baseline Cr ~1-1.1, eGFR ~50. - Check Cr tomorrow - Renally-dose medications as needed (6) Hypothyroidism: TSH was 1.7 in 11/2018. No signs/symptoms of hypo-/hyperthyroidism. - Continue home Synthroid 100 mcg (7) DVT prophylaxis: Starting rivaroxaban tomorrow for her afib Thank you for the consult! Please page the Hospitalist team with any questions or concerns. History of Present Illness Attending Physician: Kenyon Huston MD History of Present Illness 78-year-old female with a history of paroxysmal A. fib, hypertension, hypothyroidism who presents as a medical management consult status post right MARTHA with Dr. Huston on 12/22. Patient was originally scheduled for her procedure in early November; however, she was found to be in A. fib during her preop assessment, and the procedure was canceled. She converted back to sinus rhythm during her hospitalization and was discharged on metoprolol with plan to start anticoagulation after her procedure. She returned for her procedure today, and it proceeded without event. She appears to be in sinus bradycardia on exam; however, she has not had an EKG during this admission. She just returned from her procedure, and is still somewhat sedated from her anesthesia. However she awakes easily to verbal stimulus, and she denies any right hip pain, chest pain, abdominal pain, nausea, vomiting, shortness of breath, fevers, chills, or any other symptoms. Allergies Allergy/AdvReac Type Severity Reaction Status Date / Time ibuprofen AdvReac Unknown NOT TO Verified 12/22/18 06:53 TAKE DUE TO KIDNEY FUNCTION Home Medications Home Medications Medication Instructions Recorded Confirmed Type acetaminophen [Tylenol Extra 500 mg PO Q6H PRN 11/10/18 12/22/18 History Strength] amlodipine 5 mg PO QAM 11/10/18 12/22/18 History atorvastatin 40 mg PO QAM 11/10/18 12/22/18 History cholecalciferol (vitamin D3) 5,000 unit PO QAM 11/10/18 12/22/18 History [Vitamin D3] hydrochlorothiazide 25 mg PO QAM 11/10/18 12/22/18 History levothyroxine 100 mcg PO QAM 11/10/18 12/22/18 History lisinopril 2.5 mg PO QAM 11/10/18 12/22/18 History omega [id number] oil [Fish Oil] 1 cap PO QAM 11/10/18 12/22/18 History potassium chloride 20 meq PO QAM 11/10/18 12/22/18 History metoprolol succinate 25 mg PO QAM 11/29/18 12/22/18 History Patient History Medical History Atrial fibrillation DISCOVERED DURING PREOP PREP NOVEMBER 2018. PT WAS SEEN BY DR. GARCIA, TREATED AT [facility] AND DISCHARGED. PT FOLLOWED WITH DR. GARCIA AND WAS PLACED ON PO METOPROLOL. TO BE STARTED ON ANTICOAGULATION AFTER SURGERY. Chronic back pain Chronic kidney disease STAGE 3 F/U DR [place] Q 1 YR Diabetes New dx, per PCP will attempt diet control. Hyperlipidemia Hypertension Hypothyroidism Obesity Osteoarthritis Surgical History H/O hand surgery RIGHT BONE SPUR History of ERCP REMOVAL STONE History of section History of cholecystectomy History of total hip arthroplasty LEFT Family History Brother Family history of diabetes mellitus Sister Family history of diabetes mellitus Social History Preferred Language: Moldovan Communication Ability: Effective [employer] Required: No Beliefs That Will Affect Care: None Current Living Situation: Spouse Other Information That Helps Us Care for You: No Feels Safe at Home: Yes Safety Concerns: Feels Safe At This Time Smoking Status: Never smoker Hx Alcohol Use: No Hx Substance Use: No Review of Systems Constitutional: no fever, no chills and no sweats Eyes: no diplopia Ear, Nose, Mouth, Throat: no ear trauma, no nasal discharge and no dental pain Respiratory: no cough, no chest congestion and no dyspnea Cardiovascular: no chest pain, no dyspnea on exertion, no palpitations and no syncope Gastrointestinal: no abdominal pain, no belching, no constipation, no diarrhea/loose stools, no blood in stools and no melena Musculoskeletal: no back pain, no joint pain and no muscle weakness Integumentary: no rash, no skin ulcer and no erythema Neurologic: no generalized weakness, no loss of sensation, no numbness and no paresthesia Psychiatric: no depression and no anxiety Endocrine: no fatigue, no polydipsia and no polyphagia Physical Exam Vital Signs (Past 24 Hours): Last Vital Signs Temp 36.6 C 12/22/18 10:22 Pulse 48 L 12/22/18 11:04 Resp 16 12/22/18 11:04 BP 132/59 L 12/22/18 11:04 Pulse Ox 100 12/22/18 11:04 Constitutional: WD/WN, vitals as above Eyes: EOM intact bilaterally; no conjunctival abnormality ENMT: external ear and nose normal, oropharynx normal Neck: trachea midline, no thyromegaly normal visual inspection Respiratory: normal respiratory effort, lungs clear to auscultation no respiratory distress Cardiovascular: Rate/Rhythm: regular rhythm and + bradycardic Heart Sounds: normal S1 and normal S2; no murmur Vessels: no JVD Extremities: no edema Gastrointestinal (Abdomen): Inspection/Auscultation: abdomen normal to inspection; abdomen not distended Musculoskeletal: no cyanosis or clubbing, extremities motor strength 5/5 Hip: + surgical incision (Bandaged) Skin: no rashes, warm and dry Neurologic: moves all extremities and awake Psychiatric: Orientation: alert, oriented to person and cooperative
[2018-12-22] MEDS: SODIUM CHLORIDE 0.9% 1000ML 1,000 ML IV SCH ×2 (11:31→21:23)
[2018-12-22] MEDS: INSULIN ASPART 100 UNITS/ML 3 ML PEN SC SCH ×3 (13:03→20:47)
[2018-12-22] MEDS: ACETAMINOPHEN 500 MG TAB PO SCH ×2 (13:03→21:22)
[2018-12-22] MEDS: FERROUS GLUCONATE 324 MG TAB PO SCH (17:30)
[2018-12-22] MEDS: ASCORBIC ACID 500 MG TAB PO SCH (17:30)
[2018-12-23] MEDS: LEVOTHYROXINE SODIUM 100 MCG TABLET PO SCH (06:00)
[2018-12-23] MEDS: ACETAMINOPHEN 500 MG TAB PO SCH ×3 (06:00→22:07)
[2018-12-23 06:41] LABS: Eosinophils # (auto) 0.01 K/uL (0-0.5); Eosinophils % (auto) 0.1 %; Hematocrit (blood only) 28.7 % (37-47); Hemoglobin 9.7 g/dL (12.0-16.0); Immature Granulocytes # (auto) 0.02 K/uL (0.00-0.02); Immature Granulocytes % (auto) 0.2 %; Lymphocytes # (auto) 0.99 K/uL (1.2-3.4); Lymphocytes % (auto) 10.4 %; Mean Corpuscular Hgb Conc 33.8 g/dL (32-36); Mean Corpuscular Volume 92.3 fL (80-100); Monocytes # (auto) 0.64 K/uL (0.11-0.59); Monocytes % (auto) 6.7 %; Neutrophils # (auto) 7.89 K/uL (1.4-6.5); Neutrophils % (auto) 82.6 %; Platelet Count 223 K/uL (130-400); RDW Coefficient of Variation 13.8 % (11.5-14.5); RDW Standard Deviation 46.3 fL (36.4-46.3); Red Blood Count 3.11 M/uL (4.2-5.4); White Blood Count 9.55 K/uL (4.8-10.8)
[2018-12-23 07:13] LABS: Calcium 8.2 mg/dl (8.5-10.1); Creatinine Clr Calc Pharmacy 45.1 ml/min; Est GFR (African American) 60.4; Est GFR (Non-African American) 52.1; Potassium 3.6 mmol/L (3.5-5.1)
--- NOTE | 2018-12-23 07:41 | Orthopedic Progress Note ---
Date of Service December 23, 2018 Assessment & Plan (1) History of total right hip arthroplasty: 78 yo female stable POD #1 s/p right MARTHA 1. Med management 2. DVT prophylaxis- Xarelto for a-fib, SCDs 3. PT/OT 4. D/C planning- home w/ HH Subjective Pt resting in bed, pain controlled, denies complaints Physical Exam Vital Signs (Past 24 Hours): Last Vital Signs Temp 36.4 C L 12/23/18 07:38 Pulse 59 L 12/23/18 07:38 Resp 18 12/23/18 07:38 BP 109/58 L 12/23/18 07:38 Pulse Ox 99 12/23/18 07:38 Physical Exam: Toes mobile, N/V/I, Prevena dressing and drain in place, thigh soft Results & Data Laboratory Results 12/23/18 12/23/18 12/22/18 Range/Units 06:13 06:13 20:24 WBC 9.55 (4.8-10.8) K/uL RBC 3.11 L (4.2-5.4) M/uL Hgb 9.7 L (12.0-16.0) g/dL Hct 28.7 L (37-47) % MCV 92.3 (80-100) fL MCH 31.2 (25-34) pg MCHC 33.8 (32-36) g/dL RDW Std Deviation 46.3 (36.4-46.3) fL RDW Coeff of Rodney 13.8 (11.5-14.5) % Plt Count 223 (130-400) K/uL MPV 10.0 (7.4-10.4) fL Immature Gran % (Auto) 0.2 % Neut % (Auto) 82.6 % Lymph % (Auto) 10.4 % [place] % (Auto) 6.7 % Eos % (Auto) 0.1 % Baso % (Auto) 0.0 % Immature Gran # (Auto) 0.02 (0.00-0.02) K/uL Neut # (Auto) 7.89 H (1.4-6.5) K/uL Lymph # (Auto) 0.99 L (1.2-3.4) K/uL [place] # (Auto) 0.64 H (0.11-0.59) K/uL Eos # (Auto) 0.01 (0-0.5) K/uL Baso # (Auto) 0.00 (0-0.2) K/uL Sodium 141 (136-145) mmol/L Potassium 3.6 (3.5-5.1) mmol/L Chloride 108 H (98-107) mmol/L Carbon Dioxide 28 (21-32) mmol/L Anion Gap 5.0 (3-11) BUN 22 H (7-18) mg/dl Creatinine 1.04 (0.6-1.2) mg/dl Est Cr Clr Drug Dosing 45.1 ml/min Est GFR ( Amer) 60.4 Est GFR (Non-Af Amer) 52.1 BUN/Creatinine Ratio 21.0 H (10-20) Glucose 122 H (70-99) mg/dl POC Glucose 206 H (70-99) Calcium 8.2 L (8.5-10.1) mg/dl Blood Type Antibody Screen 12/22/18 12/22/18 12/22/18 Range/Units 17:02 11:57 09:48 WBC (4.8-10.8) K/uL RBC (4.2-5.4) M/uL Hgb (12.0-16.0) g/dL Hct (37-47) % MCV (80-100) fL MCH (25-34) pg MCHC (32-36) g/dL RDW Std Deviation (36.4-46.3) fL RDW Coeff of Rodney (11.5-14.5) % Plt Count (130-400) K/uL MPV (7.4-10.4) fL Immature Gran % (Auto) % Neut % (Auto) % Lymph % (Auto) % [place] % (Auto) % Eos % (Auto) % Baso % (Auto) % Immature Gran # (Auto) (0.00-0.02) K/uL Neut # (Auto) (1.4-6.5) K/uL Lymph # (Auto) (1.2-3.4) K/uL [place] # (Auto) (0.11-0.59) K/uL Eos # (Auto) (0-0.5) K/uL Baso # (Auto) (0-0.2) K/uL Sodium (136-145) mmol/L Potassium (3.5-5.1) mmol/L Chloride (98-107) mmol/L Carbon Dioxide (21-32) mmol/L Anion Gap (3-11) BUN (7-18) mg/dl Creatinine (0.6-1.2) mg/dl Est Cr Clr Drug Dosing ml/min Est GFR ( Amer) Est GFR (Non-Af Amer) BUN/Creatinine Ratio (10-20) Glucose (70-99) mg/dl POC Glucose 148 H 128 H 138 H (70-99) Calcium (8.5-10.1) mg/dl Blood Type Antibody Screen 12/22/18 Range/Units 06:48 WBC (4.8-10.8) K/uL RBC (4.2-5.4) M/uL Hgb (12.0-16.0) g/dL Hct (37-47) % MCV (80-100) fL MCH (25-34) pg MCHC (32-36) g/dL RDW Std Deviation (36.4-46.3) fL RDW Coeff of Rodney (11.5-14.5) % Plt Count (130-400) K/uL MPV (7.4-10.4) fL Immature Gran % (Auto) % Neut % (Auto) % Lymph % (Auto) % [place] % (Auto) % Eos % (Auto) % Baso % (Auto) % Immature Gran # (Auto) (0.00-0.02) K/uL Neut # (Auto) (1.4-6.5) K/uL Lymph # (Auto) (1.2-3.4) K/uL [place] # (Auto) (0.11-0.59) K/uL Eos # (Auto) (0-0.5) K/uL Baso # (Auto) (0-0.2) K/uL Sodium (136-145) mmol/L Potassium (3.5-5.1) mmol/L Chloride (98-107) mmol/L Carbon Dioxide (21-32) mmol/L Anion Gap (3-11) BUN (7-18) mg/dl Creatinine (0.6-1.2) mg/dl Est Cr Clr Drug Dosing ml/min Est GFR ( Amer) Est GFR (Non-Af Amer) BUN/Creatinine Ratio (10-20) Glucose (70-99) mg/dl POC Glucose (70-99) Calcium (8.5-10.1) mg/dl Blood Type O Positive Antibody Screen NEGATIVE
[2018-12-23] MEDS: METOPROLOL SUCC 25MG EXT REL TAB PO SCH (08:52)
[2018-12-23] MEDS: ASCORBIC ACID 500 MG TAB PO SCH ×2 (08:53→17:08)
[2018-12-23] MEDS: CHOLECALCIFEROL 1,000 UNITS TAB PO SCH (08:53)
[2018-12-23] MEDS: MULTIVITAMIN TAB PO SCH (08:53)
[2018-12-23] MEDS: hydroCHLOROthiazide 25 MG TAB PO SCH (08:53)
[2018-12-23] MEDS: FERROUS GLUCONATE 324 MG TAB PO SCH ×2 (08:53→17:08)
[2018-12-23] MEDS: ATORVASTATIN 40 MG TAB PO SCH (08:53)
[2018-12-23] MEDS: AMLODIPINE BESYLATE 5 MG TAB PO SCH (08:53)
[2018-12-23] MEDS: LISINOPRIL 2.5 MG TAB PO SCH (08:53)
[2018-12-23] MEDS: INSULIN ASPART 100 UNITS/ML 3 ML PEN SC SCH ×4 (08:55→22:07)
--- NOTE | 2018-12-23 13:33 | Hospitalist Progress Note ---
Date of Service December 23, 2018 Assessment & Plan (1) History of total right hip arthroplasty: S/p right MARTHA with Dr. Huston on 12/22. - pain control, dvt proph, bowel regimen per primary (2) Atrial fibrillation: New-onset in 11/2018. Was found to be in afib in the pre-op area before her planned right MARTHA. Paroxsymal in nature as she returned to sinus prior to discharge from that hospitalization. Presently appears to be in sinus bradycardia with rate in the 50s. - continue beta jessica - continue Xeralto (3) Diabetes: A1C was 7.0% on 11/11/18. - Sliding scale insulin - Diabetic diet (4) Hypertension: - Continue home amlodipine, lisinopril, HCTZ, and metoprolol - Would drop HCTZ and/or lisinopril if BP drops <100/50; keep beta-jessica for rate-control if she goes into afib (5) CKD (chronic kidney disease) stage 3, GFR 30-59 ml/min: Baseline Cr ~1-1.1, eGFR ~50. - kidney function stable post op - Renally-dose medications as needed (6) Hypothyroidism: TSH was 1.7 in 11/2018. No signs/symptoms of hypo-/hyperthyroidism. - Continue home Synthroid 100 mcg (7) DVT prophylaxis: Rivaroxaban Thank you for the consult, medicine will sign off at this time. Please let us know if we can be of service in the future. Subjective Ms. Li has a little soreness at her surgical site but otherwise feels well. No other complaints, looking forward to hopeful discharge tomorrow Review of Systems All systems reviewed & are unremarkable except as noted in HPI & below Physical Exam Vital Signs (Past 24 Hours): Last Vital Signs Temp 36.4 C L 12/23/18 10:55 Pulse 59 L 12/23/18 10:55 Resp 18 12/23/18 10:55 BP 117/56 L 12/23/18 10:55 Pulse Ox 100 12/23/18 10:55 Physical Exam: General: no distress Eyes: normal inspection, PERLL Respiratory: chest non tender, clear to auscultation, normal breath sounds, no respiratory distress, no accessory muscle use Cardiac: regular rate and rhythm, no rub or gallop, no murmur, no edema, no jvd GI/: active bowel sounds, no abd pain or tenderness, soft, non distended Extremities: normal range of motion, normal strength, non tender Neuro/Psych: alert and oriented x 3, normal mood and affect Skin: normal color, dry Results & Data Laboratory Results Abnormal lab results 12/22/18 12/22/18 12/23/18 Range/Units 17:02 20:24 06:13 RBC 3.11 L (4.2-5.4) M/uL Hgb 9.7 L (12.0-16.0) g/dL Hct 28.7 L (37-47) % Neut # (Auto) 7.89 H (1.4-6.5) K/uL Lymph # (Auto) 0.99 L (1.2-3.4) K/uL [place] # (Auto) 0.64 H (0.11-0.59) K/uL Chloride (98-107) mmol/L BUN (7-18) mg/dl BUN/Creatinine Ratio (10-20) Glucose (70-99) mg/dl POC Glucose 148 H 206 H (70-99) Calcium (8.5-10.1) mg/dl 12/23/18 12/23/18 12/23/18 Range/Units 06:13 08:11 11:54 RBC (4.2-5.4) M/uL Hgb (12.0-16.0) g/dL Hct (37-47) % Neut # (Auto) (1.4-6.5) K/uL Lymph # (Auto) (1.2-3.4) K/uL [place] # (Auto) (0.11-0.59) K/uL Chloride 108 H (98-107) mmol/L BUN 22 H (7-18) mg/dl BUN/Creatinine Ratio 21.0 H (10-20) Glucose 122 H (70-99) mg/dl POC Glucose 136 H 114 H (70-99) Calcium 8.2 L (8.5-10.1) mg/dl
[2018-12-23] MEDS ORDERED: RIVAROXABAN 20 MG TAB PO SCH (16:30)
[2018-12-24] MEDS: ACETAMINOPHEN 500 MG TAB PO SCH (06:10)
[2018-12-24] MEDS: LEVOTHYROXINE SODIUM 100 MCG TABLET PO SCH (06:10)
[2018-12-24] MEDS: CHOLECALCIFEROL 1,000 UNITS TAB PO SCH (07:47)
[2018-12-24] MEDS: ASCORBIC ACID 500 MG TAB PO SCH (07:47)
[2018-12-24] MEDS: hydroCHLOROthiazide 25 MG TAB PO SCH (07:48)
[2018-12-24] MEDS: LISINOPRIL 2.5 MG TAB PO SCH (07:48)
--- NOTE | 2018-12-24 07:48 | Orthopedic Progress Note ---
Date of Service December 24, 2018 Assessment & Plan (1) History of total right hip arthroplasty: 78 yo female stable POD #2 s/p right MARTHA 1. Med management 2. DVT prophylaxis- Xarelto for a-fib, SCDs 3. PT/OT 4. D/C planning- home w/ HH today. Subjective Postop day 2 status post right total hip arthroplasty. Patient is sitting up in her chair at the bedside eating breakfast. She states that she is having some pain in the right hip this morning but is tolerating well. She denies shortness of breath, chest pain, lightheadedness. She denies calf tenderness. Is hoping to go home today. Physical Exam Vital Signs (Past 24 Hours): Last Vital Signs Temp 36.7 C 12/24/18 06:53 Pulse 64 12/24/18 06:53 Resp 18 12/24/18 06:53 BP 127/65 12/24/18 06:53 Pulse Ox 93 12/24/18 06:53 Physical Exam: Prevena dressing is clean dry and intact. Thigh is soft and nontender. Calves are soft nontender. Neurovascular is intact. Toes are mobile.
[2018-12-24] MEDS: AMLODIPINE BESYLATE 5 MG TAB PO SCH (07:49)
[2018-12-24] MEDS: ATORVASTATIN 40 MG TAB PO SCH (07:49)
[2018-12-24] MEDS: MULTIVITAMIN TAB PO SCH (07:49)
[2018-12-24] MEDS: METOPROLOL SUCC 25MG EXT REL TAB PO SCH (07:49)
[2018-12-24] MEDS: FERROUS GLUCONATE 324 MG TAB PO SCH (07:49)
[2018-12-24] MEDS: INSULIN ASPART 100 UNITS/ML 3 ML PEN SC SCH ×2 (07:51→12:31)
--- NOTE | 2018-12-28 12:29 | Discharge Summary ---
CHIEF COMPLAINT: Right hip pain. Please see complete history and physical examination. HOSPITAL COURSE: The patient underwent right total hip arthroplasty without complication. She tolerated the procedure well and was discharged to recovery room in stable condition. Her postoperative course was relatively uneventful. Her postoperative pain was reasonably well controlled with a combination of spinal anesthesia, intraoperative joint injection, IV, and oral pain medications. She was started on Xarelto for DVT prophylaxis and due to new-onset atrial fibrillation. She also utilized BRAYDON stockings and SCDs for additional DVT prophylaxis. Her H and H were stable and did not require transfusion. Her drain was discontinued prior to discharge. Her Prevena dressing will remain in place for approximately 7 days postoperatively. She tolerated postop physical therapy reasonably well. She was ambulating and transferring appropriately. A postoperative medical consult was asked for to assist in her postoperative medical management. Again, the patient did not have any significant postoperative medical issues. She was discharged home on postoperative day 2. She will continue her physical therapy at home. She will continue her Xarelto for DVT prophylaxis and follow up in our office in approximately 10-14 days for her initial postop evaluation.
== END 2018-12-24 13:08 | disposition home health service (06) | DRG 470 ==
LOC: ASU 05:54 → 3E 09:53